=== PATIENT | male | born 1950 | race Caucasian/White ===

== ENCOUNTER 2020-01-19 09:48 | Emergency (ER) | payer OTHER ==
[~2020-01-19] VITALS: Ht 177.8 cm; Wt 75.8 kg
[2020-01-19] MEDS ORDERED: COUMADIN6 MG PO ×2 (10:52→10:53)
[2020-01-19] MEDS ORDERED: PEXEVA30 MG PO (10:55)
[2020-01-19] MEDS ORDERED: ATORVASTATIN CA40 MG PO (10:56)
[2020-01-19] MEDS ORDERED: PRINIVIL20 MG PO (10:56)
[2020-01-19] MEDS ORDERED: MELOXICAM7.5 MG PO (10:56)
== END 2020-01-19 12:13 | disposition home or self-care (01) ==
LOC: ED 09:48
PROC: 0HQ2XZZ Repair Right Ear Skin, External Approach (ICD-10-PCS; principal; 2020-01-19)
DX: S06.9X1A Unspecified intracranial injury with loss of consciousness of 30 minutes or less, initial encounter (principal); S01.311A Laceration without foreign body of right ear, initial encounter; S51.832A Puncture wound without foreign body of left forearm, initial encounter; I10 Essential (primary) hypertension; Z79.899 Other long term (current) drug therapy; Z79.01 Long term (current) use of anticoagulants; W19.XXXA Unspecified fall, initial encounter
CPT/HCPCS: 12001; 12011; 70450; 85025; 85610; 99284-25; J7030

== ENCOUNTER 2020-11-27 21:35 | Emergency (ER) | payer OTHER ==
[~2020-11-27] VITALS: Ht 177.8 cm; Wt 75.8 kg
[~2020-11-27 21:35] MED LIST: ATORVASTATIN CA40 MG PO; COUMADIN6 MG PO; MELOXICAM7.5 MG PO; PEXEVA30 MG PO; PRINIVIL20 MG PO
== END 2020-11-27 22:43 | disposition home or self-care (01) ==
LOC: ED 21:35
DX: I73.9 Peripheral vascular disease, unspecified (principal); I10 Essential (primary) hypertension; J44.9 Chronic obstructive pulmonary disease, unspecified; E78.5 Hyperlipidemia, unspecified; Z79.899 Other long term (current) drug therapy; Z79.01 Long term (current) use of anticoagulants
CPT/HCPCS: 99283

== ENCOUNTER 2022-09-24 12:36 | Emergency (ER) | payer OTHER ==
[~2022-09-24] VITALS: Ht 177.8 cm; Wt 70.7 kg
[2022-09-24] MEDS ORDERED: VENTOLIN HFA18 GM INH (13:00)
[2022-09-24] MEDS ORDERED: ALENDRONATE SOD70 MG PO (13:02)
[2022-09-24] MEDS ORDERED: CALCIUM CITRAT1 EAC3 PO (13:03)
[2022-09-24] MEDS ORDERED: PLAVIX75 MG PO (13:04)
[2022-09-24] MEDS ORDERED: INCRUSE ELLI62.5 MCG INH (13:04)
[2022-09-24] MEDS ORDERED: TOPROL XL25 MG PO (13:05)
[2022-09-24] MEDS ORDERED: NITROGLYCERIN0.4 MG SL (13:06)
[2022-09-24] MEDS ORDERED: LOVENOX100 MG/1 M SUB-Q (13:07)
[2022-09-24] MEDS ORDERED: WARFARIN SODIUM4 MG PO (13:10)
== END 2022-09-24 20:36 | disposition short-term general hospital (02) ==
LOC: ED 12:36
DX: T81.719A Complication of unspecified artery following a procedure, not elsewhere classified, initial encounter (principal); I10 Essential (primary) hypertension; J44.9 Chronic obstructive pulmonary disease, unspecified; E78.5 Hyperlipidemia, unspecified; Z87.891 Personal history of nicotine dependence; Z79.899 Other long term (current) drug therapy; Z79.01 Long term (current) use of anticoagulants
CPT/HCPCS: 87502; 93926; 99284-25; C9803; U0003

== ENCOUNTER 2022-10-01 17:12 | Emergency (ER) | payer OTHER ==
[~2022-10-01] VITALS: Ht 177.8 cm; Wt 74.4 kg
[~2022-10-01 17:12] MED LIST changes: +ALENDRONATE SOD70 MG PO; +CALCIUM CITRAT1 EAC3 PO; +INCRUSE ELLI62.5 MCG INH; +LOVENOX100 MG/1 M SUB-Q; +NITROGLYCERIN0.4 MG SL; +PLAVIX75 MG PO; +TOPROL XL25 MG PO; +VENTOLIN HFA18 GM INH; +WARFARIN SODIUM4 MG PO
--- OUTSIDE RECORDS SUMMARY | 2022-10-01 17:18 | XMS ---
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 Yang has no Care Guidelines for this patient. [place] MO[facility] NOTE: Visits indicate total known visits. 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 TYPE: Internal Medicine DIAGNOSES: - Aneurysm of artery of lower extremity - psuedoaneurysm of groin access site [email or web address]
[2022-10-01] MEDS ORDERED: PENTOXIFYLLINE400 MG PO (18:15)
[2022-10-02] VITALS: BP 142/58
== END 2022-10-02 | disposition short-term general hospital (02) ==
LOC: ED 17:12
DX: I72.8 Aneurysm of other specified arteries (principal); S70.12XA Contusion of left thigh, initial encounter; I10 Essential (primary) hypertension; I25.2 Old myocardial infarction; J44.9 Chronic obstructive pulmonary disease, unspecified; Z95.1 Presence of aortocoronary bypass graft; X58.XXXA Exposure to other specified factors, initial encounter; E78.5 Hyperlipidemia, unspecified; Z79.899 Other long term (current) drug therapy; Z79.01 Long term (current) use of anticoagulants
CPT/HCPCS: 36415; 73706; 80053; 83605; 85025; 99284-25; J0692; J3370; J7060; Q9967

== ENCOUNTER 2022-10-20 12:44 | Emergency (ER) | payer OTHER ==
[~2022-10-20] VITALS: Ht 177.8 cm; Wt 74.8 kg
[~2022-10-20 12:44] MED LIST changes: +PENTOXIFYLLINE400 MG PO
--- OUTSIDE RECORDS SUMMARY | 2022-10-20 12:52 | XMS ---
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 Yang has no Care Guidelines for this patient. Toya VISIT COUNT (12 MO.) 3 [facility] [place] [facility] TOTAL 3 NOTE: Visits indicate total known visits. ED/[facility] VISIT TRACKING (12 MO.) 10/20/2022 12:[address] [facility] [place] TYPE: Emergency COMPLAINT: - BLOOD PRESSURE PROBLEM 10/01/2022 17:12 [facility] [place] TYPE: Emergency COMPLAINT: - LEG SWELLING DIAGNOSES: - Aneurysm of other specified arteries - Chronic obstructive pulmonary disease, unspecified - Contusion of left thigh, initial encounter - Essential (primary) hypertension - Exposure to other specified factors, initial encounter - Hyperlipidemia, unspecified - buttermaker continuous churn (current) use of anticoagulants - Lower abdominal pain, unspecified - Old myocardial infarction - Other termination clerk (current) drug therapy - Presence of aortocoronary bypass graft 09/24/2022 12:38 [facility] [place] TYPE: Emergency COMPLAINT: - POST SURGICAL VISIT DIAGNOSES: - Chronic obstructive pulmonary disease, unspecified - Complication of other artery following a procedure, not elsewhere classified, initial encounter - Complication of unspecified artery following a procedure, not elsewhere classified, initial encounter - Contact with and (suspected) exposure to COVID-19 - Essential (primary) hypertension - Hyperlipidemia, unspecified - 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 [place] TYPE: Internal Medicine DIAGNOSES: - Aneurysm of artery of lower extremity - Local infection of the skin and subcutaneous tissue, unspecified - Other injury of unspecified body region, initial encounter - Retention of urine, unspecified - Post op infection 09/24/2022 22:[address] [facility] [place] TYPE: Internal Medicine DIAGNOSES: - Aneurysm of artery of lower extremity - psuedoaneurysm of groin access site [email or web address]
[2022-10-20 17:49] VITALS: BP 117/70
== END 2022-10-20 17:48 | disposition home or self-care (01) ==
LOC: ED 12:44
DX: E86.0 Dehydration (principal); I10 Essential (primary) hypertension; I25.2 Old myocardial infarction; J44.9 Chronic obstructive pulmonary disease, unspecified; E78.5 Hyperlipidemia, unspecified; Z95.1 Presence of aortocoronary bypass graft; Z79.899 Other long term (current) drug therapy; Z87.891 Personal history of nicotine dependence; Z79.01 Long term (current) use of anticoagulants
CPT/HCPCS: 36415; 80053; 85025; J7030

== ENCOUNTER 2023-01-17 21:23 | Emergency (ER) | payer OTHER ==
[~2023-01-17] VITALS: Ht 177.8 cm; Wt 75.0 kg
--- OUTSIDE RECORDS SUMMARY | ~2023-01-17 | XMS | Continuity of Care Document ---
Demographics + + + | Address | [address] [place] [address] | | | [place] [address] | + + + | Preferred Language | Unknown | + + + | Marital Status | Never | + + + | Advent Affiliation | Unknown | + + + | Race | White | + + + | Ethnic Group | Unknown | + + + Author + + + | Author | [place] | + + + | Organization | [place] | + + + | Address | [address] | | | [place] [address] | + + + | Phone | | + + + Care Team Providers + + + + | Care Gift Officer Name | Role | Phone | + + + + Unavailable | Unavailable | + + + + Allergies No information. Encounters No information. Functional Status No information. Immunizations No information. Medications No information. Problems + + + + | date | description | facility | + + + + | 2022-10-01 17:12 | HYPERLIPIDEMIA, | [facility] | | | UNSPECIFIED | | + + + + | 2022-10-01 17:12 | Essential (primary) | [facility] | | | hypertension | | + + + + | 2022-10-01 17:12 | OLD MYOCARDIAL INFARCTION | [facility] | + + + + | 2022-10-01 17:12 | ANEURYSM OF OTHER | [facility] | | | SPECIFIED ARTERIES | | + + + + | 2022-10-01 17:12 | CHRONIC OBSTRUCTIVE | [facility] | | | PULMONARY DISEASE, | | | | UNSPECIFIED | | + + + + | 2022-10-01 17:12 | LOWER ABDOMINAL PAIN, | [facility] | | | UNSPECIFIED | | + + + + | 2022-10-01 17:12 | CONTUSION OF LEFT THIGH, | [facility] | | | INITIAL ENCOUNTER | | + + + + | 2022-10-01 17:12 | EXPOSURE TO OTHER | [facility] | | | SPECIFIED FACTORS, INITIAL | | | | ENCOU | | + + + + | 2022-10-01 17:12 | CARE HOME (CURRENT) USE OF | [facility] | | | ANTICOAGULANTS | | + + + + | 2022-10-01 17:12 | OTHER SKIN PASS OPERATOR (CURRENT) | [facility] | | | DRUG THERAPY | | + + + + | 2022-10-01 17:12 | PRESENCE OF AORTOCORONARY | [facility] | | | BYPASS GRAFT | | + + + + Procedures No information. Results/Labs No information. Social History No information. Vital Signs No information."
--- OUTSIDE RECORDS SUMMARY | ~2023-01-17 | XMS | Continuity of Care Document ---
Demographics + + + | Address | [address] [place] [address] | | | [place] [address] | + + + | Preferred Language | Unknown | + + + | Marital Status | Never | + + + | Gnosticism Affiliation | Unknown | + + + | Race | White | + + + | Ethnic Group | Unknown | + + + Author + + + | Author | [facility] | + + + | Organization | [facility] | + + + | Address | [address] | | | [place] [address] | + + + | Phone | | + + + Care Team Providers + + + + | Care Assembler Unit Name | Role | Phone | + [...] + + + | 2022-10-01 17:12 | RETIREMENT (CURRENT) USE OF | [facility] | | | ANTICOAGULANTS | | + + + + | 2022-10-01 17:12 | OTHER DETAIL MAKER AND FITTER (CURRENT) | [facility] | | | DRUG THERAPY | | + + + + | 2022-10-01 17:12 | PRESENCE OF AORTOCORONARY | [facility] | | | BYPASS GRAFT | | + + + + Procedures No information. Results/Labs No information. Social History No information. Vital Signs No information."
[~2023-01-17 21:23] MED LIST changes: -PRINIVIL20 MG PO; +ZESTRIL10 MG PO
[2023-01-18 00:09] VITALS: BP 127/60
== END 2023-01-18 00:10 | disposition home or self-care (01) ==
LOC: ED 21:23
DX: T81.41XA Infection following a procedure, superficial incisional surgical site, initial encounter (principal); I10 Essential (primary) hypertension; I25.2 Old myocardial infarction; J44.9 Chronic obstructive pulmonary disease, unspecified; E78.5 Hyperlipidemia, unspecified; Z87.891 Personal history of nicotine dependence; Z79.899 Other long term (current) drug therapy; Z79.01 Long term (current) use of anticoagulants
CPT/HCPCS: 36415; 80053; 85025; 96365; 96366; 99283-25; J3370; J7060